=== PATIENT | male | born 1970 | race Caucasian/White ===

== ENCOUNTER → 2017-08-21 09:55 | Outpatient (CLI) | payer OTHER, SELFPAY ==
--- NOTE | 2017-08-21 10:01 | XR_ITS ---
XR chest 2V COMPARISON: PA and lateral chest 02/03/2014 HISTORY: Suspect bronchitis, rales TECHNIQUE: PA and lateral chest FINDINGS: The lung méndez are well expanded and clear of infiltrate. Cardiac size is normal and the vascularity is normal and there is no pleural fluid. There may be partially calcified hilar nodes. IMPRESSION: Nonacute chest findings
== END ==
PROVIDERS: PCP Family Medicine; Visit Provider Nurse Practitioner
DX: J40 Bronchitis, not specified as acute or chronic (principal); R09.89 Other specified symptoms and signs involving the circulatory and respiratory systems
CPT/HCPCS: 71046

== ENCOUNTER → 2020-02-18 11:59 | Outpatient (CLI) | payer OTHER, SELFPAY ==
--- NOTE | 2020-02-18 12:10 | XR_ITS ---
PROCEDURE: XR CHEST 2V Referring Doctor: Matias Cat Patient Age:49Y CLINICAL HISTORY: SOB and dyspnea for 2 months but nonsmoker. COMPARISON: CR CXR CHEST(2 VIEWS-NOT PORTABLE) from 02/03/2014 CR CXR2V XR chest 2V from 08/21/2017 FINDINGS: PA and lateral chest performed today. And compared to previous available CXR as noted above Less optimal inspiration today. There is slight additional linear scarring or atelectasis just above the left hemidiaphragm. However I see no focal pneumonia. No prominent findings no mass lesion but no pleural effusion. Heart is normal in size but satisfactory pulmonary vascularity with no CHF. Rose and mediastinal structures stable. Chest wall T-spine stable unremarkable. IMPRESSION: Minor chronic changes but no significant appearing new findings.. Nothing definitely acute. Only question some minor linear atelectasis at left lung base. . Dictated by: Xavier Chavez MD 02/18/2020 13:08 Xavier Chavez MD in [place] 02/18/2020 13:08
== END ==
PROVIDERS: PCP Family Medicine; Referring Provider Family Medicine; Visit Provider Family Medicine
DX: R06.02 Shortness of breath (principal)
CPT/HCPCS: 71046

== ENCOUNTER → 2020-02-27 13:31 | Outpatient (CLI) | payer OTHER, SELFPAY ==
[2020-02-27 14:20] VITALS: PULSE 69; PULSE 72
== END ==
PROVIDERS: PCP Family Medicine; Visit Provider Family Medicine
DX: R06.02 Shortness of breath (principal)
CPT/HCPCS: 94060; 94640

== ENCOUNTER → 2020-03-07 15:25 | Outpatient (CLI) | payer OTHER, SELFPAY ==
[2020-03-07 16:13] LABS: Basophils # 0.1 K/mm3 (0-0.2); Basophils % 0.5 % (0.1-2.0); Eosinophils # 0.5 K/mm3 (0.0-0.4); Eosinophils % 5.2 % (0.1-12.0); Hematocrit 46.7 % (42.0-52.0); Lymphocytes # 3.3 K/mm3 (0.7-4.5); Lymphocytes % 36.7 % (10-50); Mean Corpuscular HGB Conc 34.4 g/dL (31.8-35.4); Mean Corpuscular Hemoglobin 29.7 pg (27.0-31.2); Mean Corpuscular Volume 86.4 fl (80-94); Mean Platelet Volume 6.6 fl (7.4-10.4); Monocytes # 0.5 K/mm3 (0.1-1.0); Monocytes % 5.3 % (1.7-9.3); Neutrophils # 4.6 K/mm3 (1.8-7.8); Neutrophils % 52.3 % (37.0-80.0); Platelet Count 283 K/mm3 (142-424); Red Cell Distribution Width 13.6 % (11.5-17.5); White Blood Count 8.9 K/mm3 (4.8-10.8)
[2020-03-07 16:24] LABS: Uric Acid 6.4 mg/dl (3.5-8.5)
[2020-03-07 16:29] LABS: C-Reactive Protein 6.3 mg/L (0-4)
[2020-03-07 18:01] LABS: Erythrocyte Sedimentation Rate 20 mm/hr (0-15)
[2020-03-09 14:09] LABS: RA Latex Turbid. <10.0 IU/mL (0.0-13.9)
[2020-03-09 17:32] LABS: Alpha-1-Antitrypsin 121 mg/dL (101-187)
[2020-03-10 17:46] LABS: Anti-Cyclic Citrullinated Pept 3 units (0-19)
[2020-03-11 12:51] LABS: Antinuclear Antibodies, IFA Negative (.)
[2020-03-31 20:22] LABS: Antinuclear Antibodies (ANA) NEGATIVE
== END ==
PROVIDERS: Visit Provider Internal Medicine Pulmonary Disease
DX: J98.4 Other disorders of lung (principal); R06.00 Dyspnea, unspecified; J84.9 Interstitial pulmonary disease, unspecified; J44.9 Chronic obstructive pulmonary disease, unspecified
CPT/HCPCS: 36415; 82103; 84550; 85025; 85651; 86038; 86140; 86200; 86225; 86235; 86431

== ENCOUNTER → 2020-03-09 14:39 | Outpatient (CLI) | payer OTHER, SELFPAY ==
--- NOTE | 2020-03-09 15:45 | PC.NURSE ---
Albuterol 0.083% given per PFT protocol via hand held nebulizer, Pt tolerated tx well.
== END ==
PROVIDERS: PCP Family Medicine; Visit Provider Internal Medicine Pulmonary Disease
DX: R06.00 Dyspnea, unspecified (principal)
CPT/HCPCS: 94060; 94618; 94726; 94729

== ENCOUNTER → 2020-10-19 16:28 | Outpatient (CLI) | payer OTHER, SELFPAY ==
--- NOTE | 2020-10-19 16:34 | XR_ITS ---
PROCEDURE: XR FINGER RT MIN 2V CLINICAL INDICATION: INJURY TO FINGER OF RT HAND,INITIAL ENCOUNTER COMPARISON: No exams were available for comparison FINDINGS: There is the mildly displaced tuft fracture of the distal phalanx of the little finger with some overlying soft tissue swelling. No other fracture. No dislocation. Mild degenerative changes diffusely are noted. No erosions. No other abnormality. IMPRESSION: Mildly displaced tuft fracture distal phalanx middle finger with some overlying soft tissue swelling. Dictated by: Juanito Taylor 10/22/2020 08:17 Juanito Taylor in [facility] 10/22/2020 08:17
== END ==
PROVIDERS: PCP Family Medicine; Visit Provider Physician Assistant
DX: S69.91XA Unspecified injury of right wrist, hand and finger(s), initial encounter (principal)
CPT/HCPCS: 73140

== ENCOUNTER → 2021-01-12 12:28 | Outpatient (CLI) | payer OTHER, SELFPAY ==
[2021-01-12 13:09] LABS: Basophils # 0.1 K/mm3 (0-0.2); Basophils % 0.7 % (0.1-2.0); Eosinophils # 0.5 K/mm3 (0.0-0.4); Eosinophils % 5.6 % (0.1-12.0); Hematocrit 46.9 % (42.0-52.0); Lymphocytes % 33.9 % (10-50); Mean Corpuscular HGB Conc 34.2 g/dL (31.8-35.4); Mean Corpuscular Hemoglobin 30.4 pg (27.0-31.2); Mean Corpuscular Volume 88.9 fl (80-94); Mean Platelet Volume 7.4 fl (7.4-10.4); Monocytes # 0.5 K/mm3 (0.1-1.0); Neutrophils # 4.9 K/mm3 (1.8-7.8); Neutrophils % 54.8 % (37.0-80.0); Platelet Count 294 K/mm3 (142-424); Red Blood Count 5.28 M/mm3 (4.60-6.20); Red Cell Distribution Width 13.9 % (11.5-17.5); White Blood Count 8.9 K/mm3 (4.8-10.8)
[2021-01-12 13:49] LABS: Strep Scrn Group A (Rapid) Negative (Negative)
== END ==
PROVIDERS: PCP Family Medicine; Visit Provider Family Medicine
DX: Z20.822 Contact with and (suspected) exposure to COVID-19 (principal)
CPT/HCPCS: 85025; 87275; 87276; 87430; U0003

== ENCOUNTER → 2021-12-30 19:59 | Outpatient (CLI) | payer OTHER, SELFPAY ==
[2021-12-30 21:11] LABS: Basophils # 0.1 K/mm3 (0-0.2); Basophils % 0.8 % (0.1-2.0); Eosinophils # 0.4 K/mm3 (0.0-0.4); Eosinophils % 3.1 % (0.1-12.0); Hematocrit 49.8 % (42.0-52.0); Hemoglobin 15.5 g/dL (14.1-18.0); Lymphocytes # 2.4 K/mm3 (0.7-4.5); Mean Corpuscular HGB Conc 31.1 g/dL (31.8-35.4); Mean Corpuscular Volume 93.5 fl (80-94); Monocytes # 0.7 K/mm3 (0.1-1.0); Monocytes % 5.3 % (1.7-9.3); Neutrophils # 9.7 K/mm3 (1.8-7.8); Neutrophils % 72.7 % (37.0-80.0); Platelet Count 305 K/mm3 (142-424); Red Blood Count 5.33 M/mm3 (4.60-6.20); Red Cell Distribution Width 13.9 % (11.5-17.5); White Blood Count 13.4 K/mm3 (4.8-10.8)
== END ==
PROVIDERS: PCP Family Medicine; Visit Provider Family Medicine
DX: Z20.822 Contact with and (suspected) exposure to COVID-19 (principal); D72.829 Elevated white blood cell count, unspecified
CPT/HCPCS: 36415; 85025; C9803; U0003; U0005

== ENCOUNTER 2024-06-09 10:28 | Outpatient (CLI) | payer OTHER, SELFPAY ==
[2024-06-09 10:36] LABS: Coronavirus 19, PCR Not Detected (NotDetected); Human Rhinovirus Not Detected (NotDetected); Influenza B, PCR Not Detected (NotDetected); Respiratory Syncytial Virus Not Detected (NotDetected)
--- NOTE | 2024-06-09 10:43 | XR_ITS ---
FINAL REPORT CLINICAL HISTORY: PAIN LT 3RD DIGIT/HAND COMPARISON: None FINDINGS: LEFT HAND THIRD DIGIT Two views of the left hand third digit were obtained. There is no acute fracture or dislocation. The joint spaces are well-preserved. There is some soft tissue edema overlying the third DIP joint. No bony erosion or periosteal reaction is noted. There is partially visualized orthopedic hardware within the distal radius and ulna. IMPRESSION: Soft tissue edema overlying the third DIP joint. Reviewed, Interpreted and Dictated by Hua Woo MD Transcribed by Azul Kumar Authenticated and [facility]
[2024-06-09 13:31] LABS: Influenza A, PCR Detected (NotDetected)
== END 2024-06-09 23:59 | disposition home or self-care (01) ==
LOC: LAB 10:29
PROVIDERS: PCP Family Medicine; Visit Provider Family Medicine
DX: M79.645 Pain in left finger(s) (principal); J06.9 Acute upper respiratory infection, unspecified
CPT/HCPCS: 73120; 87631

== ENCOUNTER 2025-01-27 08:53 | Day surgery (SDC) | payer OTHER, SELFPAY ==
[2025-01-27 09:13] VITALS: BMI 44.7
[2025-01-27 09:16] VITALS: BP 163/80; PULSE 67; RESP 18; TEMP 36.3; O2SAT 99
[2025-01-27] MEDS: LACTATED RINGERS 1000ML 1,000 ML 50 ML IV (09:19)
--- NOTE | 2025-01-27 09:28 | EXP.ANES.CKL ---
[facility] Disclaimer: The information contained in this section may have been updated after the patient was seen, as this information can be updated by other users. Medical History (Updated 01/27/25 @ 09:16 by Petra Denny RN) History of diverticulitis Hyperlipidemia Hypertension Family History (Updated 01/27/25 @ 09:16 by Petra Denny RN) Other No significant family history Social History (Updated 01/27/25 @ 09:16 by Petra Denny RN) Smoking Status: Never smoker alcohol intake: never substance use type: denies use current occupational status: employed Travel in the last 8 weeks?: None [facility] Anesthesia Checklist Patient Identification Patient Identification: Arm Band Structural Data Admitted From: Home Planned Operative Procedure/s: Colonoscopy Consent for Planned Operative Procedure(s) Verified: Yes Verified Documents: Surgical Consent and History and Physical NPO Status Verified Time NPO: 06:45 (finished prep) Additional verifications Anesthesia Reactions: No Airway Assessment Mallampati Score:: Class II C-Spine Mobility Assessed: Yes TMJ Mobility Assessed: Yes Dentition: Good Dentition Neurological Assessment Level of Consciousness: Awake, Alert and Appropriate Anesthesia Plan Anesthesia Risk discussed: Yes Anesthesia Plan: Verified ASA Class: III Anesthesia Type: MAC
--- NOTE | 2025-01-27 09:31 | EXP.GEN.HP ---
HPI HPI HPI: Patient is a 54-year-old male who presents for screening colonoscopy. He did have a previous colonoscopy in June [address] Martin for evaluation after an episode of diverticulitis. He was found to have pandiverticulosis but no polyps. [facility] Disclaimer: The information contained in this section may have been updated after the patient was seen, as this information can be updated by other users. Medical History (Updated 01/27/25 @ 09:40 by Rustam Mac MD) History of diverticulitis Hyperlipidemia Hypertension Family History (Updated 01/27/25 @ 09:16 by Petra Denny RN) Other No significant family history Social History (Updated 01/27/25 @ 09:29 by Tawanda Atkinson CRNA) Smoking Status: Never smoker alcohol intake: never substance use type: denies use current occupational status: employed Travel in the last 8 weeks?: None Have you lived/traveled outside [place] in past 30 days?: No Contact w/someone who lives/traveled outside [place] past 30 days?: No Exposure to someone with infectious disease in past 14 days?: No Do you have a fever (greater than 100.4 F or 38 C)?: No Have you tested positive for COVID-19?: No Exposed to someone with COVID-19 in past 14 days?: No Do you have a sore throat?: No Do you have a cough?: No Do you have any weakness?: No Are you experiencing any nausea/vomitting?: No Do you have any diarrhea?: No Are you experiencing any unusual bleeding?: No Do you have any muscle aches/pain?: No Do you have any abdominal pain?: No Are you experiencing loss of taste or smell?: No Other Medical History Have you received the Pneumonia Vaccine: Yes Meds Home Medications and Allergies Home Medications ?Medication ?Instructions ?Recorded ?Confirmed ?Type atorvastatin 20 mg tablet 20 mg PO DAILY 03/07/20 01/27/25 History irbesartan 300 1 tab PO DAILY 01/27/25 01/27/25 History mg-hydrochlorothiazide 12.5 mg tablet New Prescriptions to Start Prescriptions: Allergies Allergy/AdvReac Type Severity Reaction Status Date / Time No Known Allergies Allergy Verified 01/27/25 09:17 Exam Data for Last 24 hours Vital signs and Labs for Last 24 Hours: Temp Pulse Resp BP Pulse Ox O2 Del Method 97.4 F L 67 18 163/80 H 99 Room Air 01/27/25 09:16 01/27/25 09:16 01/27/25 09:16 01/27/25 09:16 01/27/25 09:16 01/27/25 09:16 I & O for Last 24 hours: Intake & Output 01/24/25 01/25/25 01/26/25 01/27/25 11:59 11:59 11:59 11:59 Weight 330 lb Constitutional Constitutional: no acute distress *Routine HEENT Exam Head: Present normocephalic Eye: Present EOMI and PERRL ENT: Present mucous membranes moist *Routine Neck Exam Neck: Present supple; Absent lymphadenopathy *Routine Respiratory Exam Respiratory: Present CTA bilaterally *Routine Cardiovascular Exam Cardiovascular: Present RRR *Routine Abdominal Exam Abdominal: Present soft and normoactive bowel sounds; Absent tenderness *Routine Rectal Exam Rectal:: deferred *Routine Genitalia Exam Genitalia:: deferred *Routine Extremities Exam Extremities: Absent cyanosis, clubbing or edema *Routine Skin Exam Skin: Present warm; Absent rash *Routine Neurological Exam Neurological: Present alert and oriented X3 Assessment and Plan *Assessment and plan (1) Encounter for screening colonoscopy: Status: Acute Category: Medical Code(s): Z12.11 - Encounter for screening for malignant neoplasm of colon Plan Colonoscopy
--- NOTE | 2025-01-27 10:09 | P.PCN_ITS ---
Procedure: Date: 01/27/25 Patient Date of :: 1970 Procedure Performed:: Total colonoscopy to terminal ileum Indications:: Patient is a 54-year-old male who presents for screening colonoscopy. He has no symptoms of rectal bleeding. No known family history. He did have a prior colonoscopy in [address] Martin after an episode of diverticulitis and was found to have only pandiverticulosis by report. . Performing Provider:: Rustam Mac MD Referring Provider:: Matias Cat MD . Sedation:: MAC sedation . Procedure:: Patient history was obtained and appropriate physical examination was performed. Patient's medications and allergies were reviewed. Informed consent was obtained after explaining the benefits, alternatives, and risks of the procedure including, but not limited to, bleeding, perforation, missed lesions, and adverse reaction to anesthesia medications. Patient was transported to endoscopy procedure room. Patient was connected to monitoring devices. Throughout the procedure the patient's blood pressure, pulse, and oxygen saturations were monitored continuously. Patient identification and planned procedure were verified by the staff. Patient was positioned in lateral decubitus position. Digital anorectal exam was performed. Variable stiffness Olympus colonoscope was inserted and advanced under direct visualization to the cecum. Adequacy of the colonic p reparation was noted. The colonoscope was advanced a short distance into the terminal ileum. The colonoscope was then slowly withdrawn while carefully examining the color, texture, anatomy, and integrity of the mucosoa circumferentially. Within the rectum retroflexion was performed. Colonoscope was then withdrawn. Impression: There was some particulate liquid stool throughout the colon. This was able to be cleared with trans colonoscopic irrigation and suctioning. There were a few small stool balls which were able to be irrigated to allow for visualization. He had moderate pandiverticulosis. There were no noted polyps or other mucosal lesions. . Findings:: Pandiverticulosis Recommendations:: Repeat colonoscopy up to 10 years unless otherwise indicated Complications:: None immediately apparent Estimated blood obtained (mL): 0 Colonoscopy Component Colonoscopy Component Was a colonoscopy performed during today's procedure?: Yes Recommended follow up colonoscopy of at least 10 years?: Yes
[2025-01-27 10:10] VITALS: BP 98/53; PULSE 78; RESP 16; TEMP 36.3; O2SAT 91
[2025-01-27 10:20] VITALS: BP 106/60; PULSE 74; RESP 16; O2SAT 92
[2025-01-27 10:30] VITALS: BP 111/60; PULSE 66; RESP 18; O2SAT 93
[2025-01-27 10:40] VITALS: BP 122/69; PULSE 65; RESP 18; O2SAT 95
[2025-01-27 10:58] VITALS: BP 146/70; PULSE 64; RESP 18; TEMP 36.3; O2SAT 97
== END 2025-01-27 10:58 | disposition home or self-care (01) ==
PROVIDERS: PCP Family Medicine; Visit Provider Surgery
PROC: 0DJD8ZZ Inspection of Lower Intestinal Tract, Via Natural or Artificial Opening Endoscopic (ICD-10-PCS; CPT 45378; principal; 2025-01-27 10:20)
DX: Z12.11 Encounter for screening for malignant neoplasm of colon (principal); K57.30 Diverticulosis of large intestine without perforation or abscess without bleeding; E78.5 Hyperlipidemia, unspecified; I10 Essential (primary) hypertension; Z79.899 Other long term (current) drug therapy
CPT/HCPCS: 45378; J2003; J2704; J7120